=== PATIENT | female | born 1970 | race Two or more races ===

== ENCOUNTER 2018-11-21 19:14 | Emergency (ER) | payer OTHER ==
[~2018-11-21] VITALS: Ht 160 cm; Wt 49.0 kg
[2018-11-21 19:29] VITALS: BP 144/91
--- NOTE | 2018-11-21 21:10 | NUR ---
CALLED IN [facility], NO ANSWER.
[2018-11-21 21:26] LABS: APPEARANCE,URINE Clear (CLEAR); BILIRUBIN,URINE Negative (NEGATIVE); BLOOD, URINE Trace-intact Ery/uL (NEGATIVE); COLOR,URINE Yellow (YELLOW); KETONES,URINE Negative (NEGATIVE); LEUKOCYTE ESTERASE ,URINE Negative (NEGATIVE); NITRITE, URINE Negative (NEGATIVE); PH,URINE 7.5 (5.0-8.0); PROTEIN,URINE Negative (NEGATIVE); UGLUCOSE Negative (NEGATIVE); UROBILINOGEN,URINE 0.2 EU/dL (0.2)
--- NOTE | 2018-11-21 21:40 | NUR ---
CALLED IN WAITING ROOM, NO ANSWER.
[2018-11-21 22:02] LABS: BACTERIA,URINE 0 /HPF (None Seen); RBC,URINE 0-2 /HPF (0-2); SQUAMOUS EPITHELIAL CELL,UR 0-2 /HPF (None Seen); WBC,URINE 0-2 /HPF (0-3)
--- NOTE | 2018-11-21 22:08 | NUR ---
CALLED IN [facility], NO ANSWER.
== END 2018-11-21 22:09 | disposition left against medical advice (07) ==
LOC: ER 19:16
DX: Z53.21 Procedure and treatment not carried out due to patient leaving prior to being seen by health care provider (principal)
CPT/HCPCS: 81000-TC; 84703-TC; 87086-TC